=== PATIENT | female | born 1980 | race Caucasian/White ===

== ENCOUNTER → 2017-10-12 | Outpatient (REF) | payer BC | LOC: M LAB REF 10:43 | DX: J02.9 Acute pharyngitis, unspecified (principal) | CPT/HCPCS: 87077 ==

== ENCOUNTER → 2017-11-16 | Outpatient (REF) | payer BC ==
[2017-11-16 11:29] LABS: HEMATOCRIT 39.7 % (36.0-47.0); HEMOGLOBIN 13.4 g/dl (12.0-15.5); MEAN CORPUSCULAR HEMOGLOBIN 30.5 pg (27.0-33.0); MEAN CORPUSCULAR HGB CONC 33.8 g/dl (32.0-36.5); MEAN CORPUSCULAR VOLUME 90.2 fl (80.0-96.0); PLATELET COUNT, AUTOMATED 200 10^3/uL (150-450); RED CELL DISTRIBUTION WIDTH 11.9 % (11.5-14.5); WHITE BLOOD COUNT 5.8 10^3/uL (4.0-10.0)
[2017-11-16 12:30] LABS: ALBUMIN/GLOBULIN RATIO 1.29 (1.00-1.93); ALKALINE PHOSPHATASE 50 U/L (45-117); ALT/SGPT 21 U/L (12-78); ANION GAP 9 MEQ/L (8-16); AST/SGOT 14 U/L (7-37); BILIRUBIN,TOTAL 0.5 MG/DL (0.2-1.0); BLOOD UREA NITROGEN 14 MG/DL (7-18); CALCIUM LEVEL 8.7 MG/DL (8.5-10.1); CARBON DIOXIDE LEVEL 26 MEQ/L (21-32); CHLORIDE LEVEL 104 MEQ/L (98-107); CHOLESTEROL LEVEL 287 MG/DL (<200); CHOLESTEROL RISK RATIO 5.218 (<5); CREATININE FOR GFR 0.84 MG/DL (0.55-1.30); GLOMERULAR FILTRATION RATE > 60.0 (>60); GLUCOSE, FASTING 76 MG/DL (70-100); HDL CHOLESTEROL 55 MG/DL (>40); LDL CHOLESTEROL 191 MG/DL (<100); NON-HDL-C 232 MG/DL; POTASSIUM SERUM 4.3 MEQ/L (3.5-5.1); SODIUM LEVEL 139 MEQ/L (136-145); TOTAL PROTEIN 7.1 GM/DL (6.4-8.2); TRIGLYCERIDES LEVEL 207 MG/DL (<150)
[2017-11-16 12:44] LABS: TOTAL 25(OH) VITAMIN D 45.1 NG/ML (30.0-100.0)
== END ==
LOC: M SFHCCLAY 08:48
DX: R53.83 Other fatigue (principal); Z82.49 Family history of ischemic heart disease and other diseases of the circulatory system; Z13.220 Encounter for screening for lipoid disorders
CPT/HCPCS: 84443

== ENCOUNTER → 2018-02-20 | Outpatient (CLI) | payer BC ==
--- NOTE | 2018-02-20 15:22 | REP ---
Clinical: Acute bronchitis . Comparison: None . Technique: PA and lateral. Findings: The mediastinum and cardiac silhouette are normal. The lung galeas are clear and without acute consolidation, effusion, or pneumothorax. The skeletal structures are intact and normal. Impression: 1. No acute cardiopulmonary process. Electronically Signed by Charan Lima MD 02/20/2018 03:13 P
== END ==
LOC: M WUC 14:47
PROVIDERS: ATTEND Physician Assistant
DX: J20.9 Acute bronchitis, unspecified (principal)

== ENCOUNTER → 2018-05-27 | Outpatient (REF) | payer BC | LOC: M SFHCLERA 12:04 | PROVIDERS: ATTEND Physician Assistant | DX: Z20.818 Contact with and (suspected) exposure to other bacterial communicable diseases (principal) ==

== ENCOUNTER → 2018-08-23 | Outpatient (REF) | payer BC ==
[2018-08-23 18:18] LABS: ALT/SGPT 26 U/L (12-78); BILIRUBIN,TOTAL 0.3 MG/DL (0.2-1.0); BLOOD UREA NITROGEN 16 MG/DL (7-18); CALCIUM LEVEL 8.9 MG/DL (8.5-10.1); CARBON DIOXIDE LEVEL 29 MEQ/L (21-32); CHLORIDE LEVEL 104 MEQ/L (98-107); CREATININE FOR GFR 0.95 MG/DL (0.55-1.30); GLOMERULAR FILTRATION RATE > 60.0 (>60); GLUCOSE, FASTING 82 MG/DL (70-100); POTASSIUM SERUM 4.4 MEQ/L (3.5-5.1); SODIUM LEVEL 139 MEQ/L (136-145); TOTAL PROTEIN 7.2 GM/DL (6.4-8.2)
[2018-08-23 18:52] LABS: BASO % 0.6 % (0.0-1.0); EOS # 0.2 10^3/uL (0.0-0.50); EOS % 3.7 % (0.0-3.0); HEMATOCRIT 39.2 % (36.0-47.0); LYMPH % 31.7 % (24.0-44.0); MEAN CORPUSCULAR HEMOGLOBIN 30.6 pg (27.0-33.0); MEAN CORPUSCULAR HGB CONC 33.2 g/dl (32.0-36.5); MEAN CORPUSCULAR VOLUME 92.2 fl (80.0-96.0); MONO # 0.4 10^3/uL (0.0-0.8); MONO % 6.7 % (0.0-5.0); NEUTROPHILS # 3.7 10^3/uL (1.8-7.7); NEUTROPHILS % 57.1 % (36.0-66.0); PLATELET COUNT, AUTOMATED 213 10^3/uL (150-450); RED BLOOD COUNT 4.25 10^6/uL (4.00-5.40); WHITE BLOOD COUNT 6.4 10^3/uL (4.0-10.0)
== END ==
LOC: M LABNEURO 14:28
PROVIDERS: ATTEND Psychiatry & Neurology Neurology
DX: G40.89 Other seizures (principal)

== ENCOUNTER → 2018-11-16 | Outpatient (CLI) | payer BC ==
--- NOTE | 2018-11-16 16:46 | REP ---
PA and lateral chest: Comparison is 02/20/2018. The lung galeas are clear. The cardiac size is normal. The shon, mediastinum, and skeletal structures are unremarkable. Impression: Negative PA and lateral chest. There is no interval change. Electronically Signed by Pb Denton MD 11/16/2018 04:38 P
== END ==
LOC: M WUC 09:04
PROVIDERS: ATTEND Physician Assistant
DX: R06.02 Shortness of breath (principal)

== ENCOUNTER 2019-04-13 20:25 | Emergency (ER) | payer BC ==
[~2019-04-13] VITALS: Ht 165.1 cm; Wt 88.2 kg
[2019-04-13 20:31] VITALS: BP 140/97
[2019-04-13] MEDS ORDERED: FLUO40CA PO (20:36)
[2019-04-13] MEDS ORDERED: LEVE750T5 PO (20:36)
[2019-04-13] MEDS ORDERED: ARIP1TAB6 PO (20:36)
[2019-04-13] MEDS ORDERED: IBUPROFEN 800 MG TAB PO ONE (22:30)
[2019-04-13] MEDS ORDERED: TYLETAB14 PO (22:49)
--- NOTE | 2019-04-14 07:47 | REP ---
Clinical: Trauma. Fall. Technique: AP and lateral views of the right tibia / fibula. Findings: No acute fracture or dislocation. Skeletal structures, joint spaces, and surrounding soft tissues are normal. No subcutaneous emphysema or foreign body. Impression: No acute fracture or dislocation. Electronically Signed by Chaarn Lima MD 04/14/2019 07:39 A
--- NOTE | 2019-04-14 07:57 | REP ---
Clinical: Trauma. Technique: AP, lateral, bilateral oblique and sunrise views right knee . Findings: The osseous structures and joint spaces are intact and normal. There is no evidence for acute fracture or dislocation. No joint effusion is appreciated. Surrounding soft tissues are unremarkable. No subcutaneous emphysema or radiodense foreign body. Impression: Normal examination. No acute fracture or dislocation. Electronically Signed by Charan Lima MD 04/14/2019 07:49 A
== END 2019-04-13 23:04 | disposition home or self-care (01) ==
LOC: M ED 20:25
DX: M23.91 Unspecified internal derangement of right knee (principal); F32.9 Major depressive disorder, single episode, unspecified; Z79.899 Other long term (current) drug therapy; Z88.1 Allergy status to other antibiotic agents

== ENCOUNTER → 2019-07-17 | Outpatient (CLI) | payer BC ==
[~2019-07-17] MED LIST: ARIP1TAB6 PO; FLUO40CA PO; LEVE750T5 PO; MODA200T15 PO; PROBCAP14 PO; TYLETAB14 PO
== END ==
LOC: M LABSMTC 10:48
PROVIDERS: ATTEND Anesthesiology
DX: Z01.818 Encounter for other preprocedural examination (principal); Z11.59 Encounter for screening for other viral diseases
CPT/HCPCS: C9803; U0002

== ENCOUNTER 2019-07-19 06:14 | Day surgery (SDC) | payer BC ==
[~2019-07-19] VITALS: Ht 165.1 cm; Wt 96.6 kg
[~2019-07-19 06:14] MED LIST changes: +LR 1,000 ML IV ONE
[2019-07-19] MEDS ORDERED: ROCURONIUM BROMIDE 50 MG/5 ML VIAL As Ordered ONE (07:14)
[2019-07-19] MEDS ORDERED: LIDOCAINE 2% 100MG/5ML SDV (FOR ANES.) As Ordered ONE (07:14)
[2019-07-19] MEDS ORDERED: propofoL 200 MG/20 ML VIAL As Ordered ONE ×2 (07:14→07:43)
[2019-07-19] MEDS ORDERED: MIDAZOLAM INJ 2MG/2ML VIAL (J2250 PER 1MG) As Ordered ONE (07:14)
[2019-07-19] MEDS ORDERED: ceFAZolin SOD 2 GM in IV 1 EA IV ONE (07:15)
[2019-07-19] MEDS ORDERED: fentaNYL 100 MCG/2 ML INJECTION (J3010) As Ordered ONE (07:15)
[2019-07-19] MEDS ORDERED: ROPIvacaine 0.5% 30ML INJECTION (J2795 PER 1MG) As Ordered ONE (07:30)
[2019-07-19] MEDS ORDERED: dexameTHASONE 4 MG/ML 1ML VIAL (J1100 PER 1MG) As Ordered ONE (07:39)
[2019-07-19] MEDS ORDERED: ACETAMINOPHEN 1000MG 100ML IV BTL (OFIRMEV) (J0131 PER 10MG) As Ordered ONE (07:47)
[2019-07-19] MEDS ORDERED: KETOROLAC 60 MG/2 ML VIAL As Ordered ONE (07:53)
[2019-07-19] MEDS ORDERED: ONDANSETRON 4MG/2ML VIAL As Ordered ONE (07:53)
[2019-07-19] MEDS ORDERED: METOCLOPRAMIDE INJ 10MG/2ML VIAL (J2765 PER 1) As Ordered ONE (07:53)
[2019-07-19] MEDS ORDERED: HYDROmorphone HCL 2 MG/ML 1ML VIAL (J1170) As Ordered ONE (07:55)
[2019-07-19] MEDS ORDERED: hydrALAZINE 20MG/ML 1ML VIAL (J0360 PER 20MG) As Ordered ONE (08:40)
[2019-07-19] MEDS ORDERED: METOCLOPRAMIDE INJ 10MG/2ML VIAL (J2765 PER 1) IV PRN (09:30)
[2019-07-19] MEDS ORDERED: fentaNYL 100 MCG/2 ML INJECTION (J3010) IV PRN (09:30)
[2019-07-19] MEDS ORDERED: LR 1,000 ML IV SCH ×2 (09:30→09:45)
[2019-07-19] MEDS ORDERED: ONDANSETRON 4MG/2ML VIAL IV PRN (09:30)
[2019-07-19] MEDS ORDERED: PERCOCET 5MG/325MG TAB PO PRN (09:30)
[2019-07-19] MEDS ORDERED: MORPHINE 2 MG/ML 1ML VIAL (J2270) IV PRN (09:45)
[2019-07-19] MEDS ORDERED: ACETAMINOPHEN TAB 650MG DOSE (2X325MG) PO PRN (09:45)
[2019-07-19 12:25] VITALS: BP 113/61
--- NOTE | 2019-07-21 00:09 | RO ---
DATE OF PROCEDURE: 07/19/2019 PREOPERATIVE DIAGNOSIS: Right knee anterior cruciate ligament (ACL) tear. POSTOPERATIVE DIAGNOSIS: Right knee anterior cruciate ligament tear. PLANNED PROCEDURE: Right knee arthroscopy , hamstring autograft, anterior cruciate ligament reconstruction. PROCEDURE PERFORMED: Right knee arthroscopy, hamstring autograft, anterior cruciate ligament reconstruction. SURGEON: Stephen Dailey MD BANANA ROOM CUTTER: Amanda Thomas PA-C GENERAL UTILITY MAINTENANCE REPAIRER: Dr. Retana TYPE OF ANESTHETIC: General anesthetic. OPERATIVE PREAMBLE: The patient sustained an ACL tear and medial collateral ligament (MCL) sprain. She wished to go ahead with surgery. Explained the pros and cons, the risks and benefits of ACL reconstruction versus nonoperative management. I reiterated the risks in preoperative holding and marked the right lower extremity and proceeded to surgery. DESCRIPTION OF PROCEDURE: The patient was brought to the operating theatre. She was placed supine on the operating table. All bony processes were padded. 34-inch tourniquet was applied on the right thigh, appropriately padded. Stress positioner was used to right side. All bony prominences were padded. Sequential compression devices (SCDs) on the down leg. Two grams of IV Ancef was administered. General anesthesia was induced. Limb was prepped and draped in the usual sterile fashion, allowing over 3 minutes prep solution drying time. Preoperative time-out was performed to confirm to the site, the patient, and the surgery. Began by elevating the leg, making a 2-inch incision centered over the proximal and medial border of the tibia, carried the dissection down through skin and subcutaneous tissue, achieving meticulous hemostasis. I incised the sartorius fascia in line with the hamstring tendon insertions. I released any bands from the hamstrings. I used an open-ended tendon harvester to release the tendons proximally and then sharply excised them off bone. the tendons, changed them end to end. I cut them both off at 24 cm long. I whip stitched each end with #2 FiberWire for a length of 2.5 cm. Cleaned away any soft tissue and bands on the tendons. I attached one end to the TightRope RT button, passed the other through the loop of the ABS loop suture system, and then tripled the graft over and tied it over the ABS button loop system again. Tensioned the graft slightly. I then used locking loop-type configuration with buried knots at 1 and 2 cm from the tendon ends on both ends using #2 FiberWire again and burying the knots. Graft was sized; it sized to a 10 on both sides. Graft was placed on tension and surrounded by wet gauze. I next turned my attention back to the knee. I made standard high anterolateral and anteromedial portals. Performed full diagnostic arthroscopy. Cartilage was normal in patellofemoral as well as the lateral compartment. There was slight cartilage fraying, grade 1 to 2, on the medial femoral condyle, more towards the notch. I gently debrided this using a shaver. Meniscus were stable and solid on both sides, including the anterior and posterior horns and roots. No obvious tears. ACL had an obvious deficiency with positive empty lateral wall sign. The remaining stump was debrided. Lateral back wall was identified, as well as the ACL remnant stump between the tibial spines. Using inside-out FlipCutter retrograde drilling, I made the drill holes in the femur and the tibia. Femur was low and near the back wall without blowing it out. This measured 3 cm in length with a total tunnel length of 4 cm. The scope was driven up to confirm positive lateral cortex into the tunnel. Edges of the tunnels were cleaned up using a shaver. I then passed a #2 FiberWire using the FiberSticks through both tunnels, and through the anteromedial portal which I had placed a PassPort cannula. PassPort cannula was then removed and graft passed into the femoral and tibial tunnels. Graft was tensioned up into the femoral tunnel for a length of 3 cm. Total tunnel length in the tibia was 4 cm with a retrograde tunnel length of 3 cm as well. Total graft length was 7.5 cm, making 3 cm in each tunnel and 1.5 cm graft in the knee. Final arthroscopy pictures were taken and saved onto the system, and it was stable and solid to testing intraoperatively. No obvious impingement in full extension. The knee was cycled prior to graft tensioning and final tensioning was performed on both sides of the femur and the tibia. Backup sutures were then tied over the button as well on the tibial side. Passing sutures were removed and cut short on the femur and tibial side. Wounds were thoroughly irrigated, tourniquet taken down. Subcutaneous tissue was closed with interrupted #2-0 Vicryl sutures, and the skin with #3-0 Monocryl. 20 mL of 0.25% ropivacaine was used in and around the incision sites. Steri-Strips were applied, Adaptic, 4 x 8 gauze and ABD dressing was then used and overwrapped with a sterile 6-inch Jeremi bandage. The patient was woken up from the general anesthetic, transferred off the operating table and taken to the post-anesthesia care unit in stable condition. All sponge, needle, and instrument counts were orrect. Estimated blood loss: 50 mL. No complications. PLAN: The patient is to be discharged home according to day-surgery criteria. She will be weightbearing as tolerated using crutches for the first 2 weeks. Prescription will be called into her pharmacy of choice. Followup in the office in 2 weeks' time. The library circulation assistant, Amanda Thomas, was instrumental in completing the case, achieving visualization, and passing instruments. MELIDA
== END 2019-07-19 13:13 | disposition home or self-care (01) ==
LOC: M SDC 06:14
PROVIDERS: ATTEND Orthopaedic Surgery Sports Medicine
DX: S83.511A Sprain of anterior cruciate ligament of right knee, initial encounter (principal); S83.411A Sprain of medial collateral ligament of right knee, initial encounter; X58.XXXA Exposure to other specified factors, initial encounter; Y92.89 Other specified places as the place of occurrence of the external cause; E78.5 Hyperlipidemia, unspecified; R56.9 Unspecified convulsions; F41.9 Anxiety disorder, unspecified; F32.9 Major depressive disorder, single episode, unspecified; L30.9 Dermatitis, unspecified; G43.109 Migraine with aura, not intractable, without status migrainosus; Z87.891 Personal history of nicotine dependence; Z88.1 Allergy status to other antibiotic agents; Z79.899 Other long term (current) drug therapy
CPT/HCPCS: 29888; 81025; C1713; J0131; J0360; J0690; J1100; J1170; J1885; J2250; J2405; J2765; J2795; J3010

== ENCOUNTER → 2019-09-15 | Outpatient (CLI) | payer BC ==
[~2019-09-15] MED LIST changes: -LR 1,000 ML IV ONE
== END ==
LOC: M LABSMTC 13:07
PROVIDERS: ATTEND Anesthesiology
DX: Z01.818 Encounter for other preprocedural examination (principal); Z11.59 Encounter for screening for other viral diseases
CPT/HCPCS: C9803; U0003

== ENCOUNTER 2019-09-20 06:16 | Day surgery (SDC) | payer BC ==
[~2019-09-20] VITALS: Ht 167.6 cm; Wt 96.6 kg
[~2019-09-20 06:16] MED LIST changes: +LIDOCAINE 1% MDV 20ML VIAL SQ PRN; +LR 1,000 ML IV ONE; +ceFAZolin SOD 2 GM in IV 1 EA IV ONE
[2019-09-20] MEDS ORDERED: fentaNYL 100 MCG/2 ML INJECTION (J3010) As Ordered ONE ×2 (06:41→07:13)
[2019-09-20] MEDS ORDERED: MIDAZOLAM INJ 2MG/2ML VIAL (J2250 PER 1MG) As Ordered ONE ×2 (06:41→07:13)
[2019-09-20] MEDS ORDERED: BUPIVACAINE HCL 0.5% 30 ML VIAL As Ordered ONE (06:48)
[2019-09-20] MEDS ORDERED: ROPIvacaine 0.5% 30ML INJECTION (J2795 PER 1MG) As Ordered ONE (07:09)
[2019-09-20] MEDS ORDERED: ONDANSETRON 4MG/2ML VIAL As Ordered ONE (07:13)
[2019-09-20] MEDS ORDERED: LIDOCAINE 2% 100MG/5ML SDV (FOR ANES.) As Ordered ONE (07:13)
[2019-09-20] MEDS ORDERED: dexameTHASONE 4 MG/ML 1ML VIAL (J1100 PER 1MG) As Ordered ONE (07:45)
[2019-09-20] MEDS ORDERED: ACETAMINOPHEN 1000MG 100ML IV BTL (OFIRMEV) (J0131 PER 10MG) As Ordered ONE (08:01)
[2019-09-20] MEDS ORDERED: HYDROmorphone HCL 2 MG/ML 1ML VIAL (J1170) As Ordered ONE (08:22)
[2019-09-20] MEDS ORDERED: ePHEDrine SULFATE 25 MG/5 ML(5MG/ML) SYRINGE As Ordered ONE (08:41)
[2019-09-20] MEDS ORDERED: PHENYLephrine HCL 500 MCG/5 ML (100MCG/ML) SYRINGE (J2370) As Ordered ONE (08:41)
[2019-09-20] MEDS ORDERED: SEVOFLURANE INHAL SOLN 250 ML BTL As Ordered ONE (09:16)
[2019-09-20] MEDS ORDERED: oxyCODONE 5MG TAB PO PRN (10:30)
[2019-09-20] MEDS ORDERED: fentaNYL 100 MCG/2 ML INJECTION (J3010) IV PRN (10:30)
[2019-09-20] MEDS ORDERED: LEVALBUTEROL 1.25 MG/0.5 ML CONCENTRATE NEB As Ordered ONE (10:30)
[2019-09-20] MEDS ORDERED: LR 1,000 ML IV SCH ×2 (10:30→10:45)
[2019-09-20] MEDS ORDERED: ONDANSETRON 4MG/2ML VIAL IV PRN ×2 (10:30→10:45)
[2019-09-20] MEDS ORDERED: PERCOCET 5MG/325MG TAB PO PRN (10:45)
[2019-09-20] MEDS ORDERED: ACETAMINOPHEN TAB 650MG DOSE (2X325MG) PO PRN (10:45)
--- NOTE | 2019-09-20 11:22 | RO ---
DATE OF PROCEDURE: 09/20/2019 PREOPERATIVE DIAGNOSIS: Right knee anterior cruciate ligament (ACL) graft failure. POSTOPERATIVE DIAGNOSIS: Right knee anterior cruciate ligament graft failure. PLANNED PROCEDURE: Right knee anterior cruciate ligament revision. PROCEDURE PERFORMED: Right knee anterior cruciate ligament revision, plus allograft tissue. SURGEON: Dr. Dailey GROUND OPERATIONS CREW MEMBER: Dr. Su ALTERATIONS MANAGER: ROBERT Butler OPERATIVE PREAMBLE: This 39-year-old female underwent ACL hamstring allograft reconstruction. Within about a week she felt like the knee all of a sudden felt different and unstable. I saw her postoperative week #2. The knee was obviously unstable with graft failure. This is apparent on x-rays and MRI. We discussed the pros, cons, risks, and benefits of going ahead with a right knee ACL revision, reconstruction and possible need for allograft tissue. She understands. I reiterated the risks in preoperative holding, marked the right lower extremity and proceeded surgery. OPERATIVE REPORT: Patient was brought to operating theater. Administered general anesthetic. Placed supine on operating room table. Stress positioner was used to the patient's right leg. Tourniquet was applied and appropriately padded. All bony prominences were padded. Sequential compressive device (SCD) used on the opposite leg. Limb was prepped and draped in the usual sterile fashion allowing over 3 minutes prep solution drying time. Preoperative time-out was performed to confirm the site, the patient and surgery. I began by elevating the leg, inflating the tourniquet. Next, a superolateral incision to try to find the femoral buttone. This was quite difficult to find. I then turned my attention to the anteromedial tibial incision. I made this. I centered it proximally slightly. Found the buttone. I then inserted the scope into the knee through the anterolateral previously used portal as well as creating the anteromedial portal through the previously used site and then accessory anteromedial portal more medially-based in the knee. The graft appeared to be in the femoral tunnel and in the tibial tunnel, however, the graft appeared to be stretched out. Prior to the start of the case, I had performed Michael and pivot-shift testing. The graft appeared to be having a 2+ pivot-shift and 2+ Micheal and quite unstable. There was some suture in the graft leading me to believe that although the graft appeared to be mostly in the femoral tunnel there was fixation failure on the femoral side. I then turned my attention back to anteromedial tibial incision. I removed the button. I attempted to deliver the graft back through, however, the graft was macerated and stretched out. As such, I made the decision to remove the entire length of the graft with the shaving instruments. I completed the tibial tunnel. This appeared to be appropriate position; however, I fully completed the tibial tunnel of the anteromedial aspect of the tibial tunnel using a 9.5 mm series III FlipCutter instrument as that was what the allograft tissue diameter measured. I removed all graft and used a shaving instrument to freshen up the edges of the tunnel on both tibial and femoral side. Femoral tunnel measured approximately 3 cm with good lateral wall and tibial tunnel measured approximately 4 cm. The tunnels appeared to be in appropriate position and not dilated. I then turned my attention preparing the allograft Arthrex graft length tissue. This measured 7.5 cm in length and cm in diameter. I attempted to place the femoral tightrope in the usual fashion displacing a suture, however the suture pulling advice failed, and as such, I used the pre-sutured tails to attach this directly to a new femoral TightRope RT button. On the tibial side, the went through cleanly and easily for the ABS button loop suture system. I placed a PassPort cannula through the anteromedial portal. #2-0 FiberStick sutures were then used to the tibial and femoral side coming up the PassPort cannula. Femoral sutures were marked. The PassPort cannula was then removed ensuring no twisting of the passing sutures. The femoral side stitches were then passed through the femoral side button flipped and graft tensioned into the femoral socked for a length of approximately 2.5-3 cm. This docked appropriately. I then used a luggage tag stitch on the ABS button loop sutures, then passed this through the tibial tunnel. I cycled the knee 10 times to take up tension from the graft. I pulled with my fingers in a loop of the ABS button loop with the knee at 90 degrees as well 30 and tensioned the graft to see if the graft was too long for the tunnel, which I had overdrilled to ensure that there was no aspect of graft bottoming out and not achieving appropriate tension in the graft despite firm pulling on the graft was simply at the tunnel aperture and no further. As such, I attached the button and tightened down the internally tightening sutures. The button I used was from the previous surgery. This achieved good tension. I decided to back this up due to previous failure with a SwiveLock anchor on the anteromedial tibial just distal to the fixation point. I tapped and inserted the anchor and cut the sutures short. Michael was stable and solid and range of motion was full. No impingement in extension. Final arthroscopy pictures taken to with system. Medial and lateral compartments of the knee were entered and no obvious meniscus tear and patellofemoral joint appeared normal. Scope was withdrawn. The wounds irrigated using normal saline. Subcutaneous tissues closed with interrupted #2-0 Vicryl sutures and the skin with #3-0 Monocryl. The skin was cleaned with wet-to-dry dressing followed by application of Steri-Strips, Adaptic, 4 x 8 gauze, and ABD dressing overwrapped with sterile 6 inch bandage. The patient was awoken up from general anesthetic, transferred off the operating table and taken too postanesthesia care unit in stable addition. All sponge, needle, instrument counts were correct. No complications. Estimated blood loss 50 mL. Plan for the patient is to be discharged home according to day surgery criteria. They can be weightbearing as tolerated on crutches for the first 2 weeks. I will slow down the rehab considering they had an early graft failure to begin with. They change dressing post-op day #2. Prescription was called into the pharmacy of choice electronically. The itinerant teacher assistant, Terrell Guillen, was instrumental in achieving visualization, passing instruments, holding the arthroscope and completing this case.
--- NOTE | 2019-09-20 12:25 | REP ---
Portable chest x-ray: Single view. History: Decreased pulse ox. Comparison chest x-ray November 16, 2018. Findings: Monitoring electrodes overlie the chest. Lungs are symmetrically aerated and clear. Heart is not enlarged. Pulmonary vasculature is not increased. No significant bony abnormality is seen. Impression: No acute disease. Electronically Signed by Uche Pleitez MD 09/20/2019 12:16 P
[2019-09-20 14:00] VITALS: BP 107/61
== END 2019-09-20 15:08 | disposition home or self-care (01) ==
LOC: M SDC 06:16
PROVIDERS: ATTEND Orthopaedic Surgery Sports Medicine
DX: S83.511A Sprain of anterior cruciate ligament of right knee, initial encounter (principal); X58.XXXA Exposure to other specified factors, initial encounter; Y92.89 Other specified places as the place of occurrence of the external cause; Y93.9 Activity, unspecified; Y99.9 Unspecified external cause status; G43.909 Migraine, unspecified, not intractable, without status migrainosus; G40.909 Epilepsy, unspecified, not intractable, without status epilepticus; E78.5 Hyperlipidemia, unspecified; F41.9 Anxiety disorder, unspecified; F32.9 Major depressive disorder, single episode, unspecified; Z79.899 Other long term (current) drug therapy; Z88.1 Allergy status to other antibiotic agents; Z87.891 Personal history of nicotine dependence
CPT/HCPCS: 27427; 71045; 81025; C1713; C1762; J0131; J0690; J1100; J1170; J2250; J2370; J2405; J2795; J3010

== ENCOUNTER → 2019-10-12 | Outpatient (REF) | payer BC ==
[~2019-10-12] MED LIST changes: -LIDOCAINE 1% MDV 20ML VIAL SQ PRN; -LR 1,000 ML IV ONE; -ceFAZolin SOD 2 GM in IV 1 EA IV ONE
[2019-11-19 10:35] LABS: CHLAMYDIA DNA AMPLIFICATION NEGATIVE (NEGATIVE); GC DNA AMPLIFICATION NEGATIVE (NEGATIVE)
[2019-11-29 09:13] LABS: HEPATITIS C VIRUS ABY INDEX 0.1 INDEX (<0.8); HIV 1&2 SCREEN CENTAUR NEGATIVE (NEGATIVE)
== END ==
LOC: M SFHCWAGY 12:28
PROVIDERS: ATTEND Advanced Practice Midwife
DX: Z12.4 Encounter for screening for malignant neoplasm of cervix (principal)

== ENCOUNTER → 2020-01-30 | Outpatient (CLI) | payer BC ==
[2020-01-30 17:50] LABS: BASO # 0.1 10^3/uL (0.0-0.2); BASO % 0.6 % (0.0-1.0); EOS # 0.3 10^3/uL (0.0-0.5); EOS % 3.2 % (0.0-3.0); HEMATOCRIT 38.6 % (36.0-47.0); HEMOGLOBIN 12.5 g/dl (12.0-15.5); LYMPH # 2.3 10^3/uL (1.5-5.0); LYMPH % 27.8 % (24.0-44.0); MEAN CORPUSCULAR HEMOGLOBIN 29.9 pg (27.0-33.0); MEAN CORPUSCULAR HGB CONC 32.4 g/dl (32.0-36.5); MEAN CORPUSCULAR VOLUME 92.3 fl (80.0-96.0); MONO # 0.5 10^3/uL (0.0-0.8); MONO % 6.6 % (0.0-5.0); NEUTROPHILS % 61.2 % (36.0-66.0); PLATELET COUNT, AUTOMATED 212 10^3/uL (150-450); RED BLOOD COUNT 4.18 10^6/uL (4.00-5.40); WHITE BLOOD COUNT 8.2 10^3/uL (4.0-10.0)
[2020-01-30 18:28] LABS: ALBUMIN 3.7 GM/DL (3.2-5.2); ALT/SGPT 29 U/L (12-78); BILIRUBIN,TOTAL 0.2 MG/DL (0.2-1.0); BLOOD UREA NITROGEN 12 MG/DL (7-18); CALCIUM LEVEL 9.5 MG/DL (8.5-10.1); CARBON DIOXIDE LEVEL 27 MEQ/L (21-32); CHLORIDE LEVEL 105 MEQ/L (98-107); CREATININE FOR GFR 0.85 MG/DL (0.55-1.30); GLOMERULAR FILTRATION RATE > 60.0 (>60); GLUCOSE, FASTING 92 MG/DL (70-100); POTASSIUM SERUM 4.3 MEQ/L (3.5-5.1); SODIUM LEVEL 138 MEQ/L (136-145)
== END ==
LOC: M PLALAB 15:03
PROVIDERS: ATTEND Psychiatry & Neurology Neurology
DX: G40.89 Other seizures (principal)

== ENCOUNTER → 2020-02-18 | Outpatient (REF) | payer BC | LOC: M LAB REF 15:01 | PROVIDERS: ATTEND Nurse Practitioner Family | DX: J02.9 Acute pharyngitis, unspecified (principal) ==

== ENCOUNTER → 2020-09-25 | Outpatient (CLI) | payer BC ==
--- NOTE | 2020-09-25 10:20 | REP ---
INDICATION: PAIN COMPARISON: 04/13/2019 a pre operative exam TECHNIQUE: Five views FINDINGS: Patient is status post ACL reconstruction. Mature tunnel defects are seen 1 of the proximal femur laterally and the other in the proximal tibia medially and secondary to previous reconstruction of the ACL. There are 3 metallic densities present 2 proximally 1 distally consistent with anchor devices. There is minimal bicompartmental marginal osteophyte formation and very mild medial compartmental narrowing. There is no acute fracture, dislocation, or subluxation. There are no prior postoperative examinations for comparison. IMPRESSION: Postoperative changes and mild chronic changes as described above. There is no evidence of an acute abnormality. <Electronically signed by Isacc Brenner > 09/25/20 [id number]
== END ==
LOC: M WUC 09:52
PROVIDERS: ATTEND Nurse Practitioner Family
DX: M25.561 Pain in right knee (principal)

== ENCOUNTER → 2020-10-10 | Outpatient (CLI) | payer BC ==
--- NOTE | 2020-10-10 15:34 | REP ---
INDICATION: RIGHT FOOT AND ANKLE PAIN. COMPARISON: None. TECHNIQUE: Four views FINDINGS: No foot fracture, dislocation or bone texture and mallet EPB and alignment normal. Joint spaces well preserved. Soft tissues unremarkable. IMPRESSION: Normal radiographs right foot <Electronically signed by Ty Perez > 10/10/20 [id number]
== END ==
LOC: M SOG 15:11
PROVIDERS: ATTEND Orthopaedic Surgery Sports Medicine
DX: M25.571 Pain in right ankle and joints of right foot (principal)

== ENCOUNTER → 2020-11-19 | Outpatient (CLI) | payer BC | LOC: M PLALAB 15:39 | PROVIDERS: ATTEND Specialist | DX: N92.6 Irregular menstruation, unspecified (principal) ==

== ENCOUNTER → 2020-11-21 | Outpatient (CLI) | payer BC | LOC: M PLALAB 14:41 | PROVIDERS: ATTEND Advanced Practice Midwife | DX: N91.2 Amenorrhea, unspecified (principal) ==

== ENCOUNTER → 2020-12-14 | Outpatient (CLI) | payer BC | LOC: M LAB 11:17 | PROVIDERS: ATTEND Advanced Practice Midwife | DX: N91.2 Amenorrhea, unspecified (principal) ==

== ENCOUNTER → 2020-12-16 | Outpatient (CLI) | payer BC | LOC: M PLALAB 13:38 | PROVIDERS: ATTEND Specialist | DX: N92.6 Irregular menstruation, unspecified (principal) ==

== ENCOUNTER → 2020-12-18 | Outpatient (CLI) | payer BC | LOC: M PLALAB 11:54 | PROVIDERS: ATTEND Advanced Practice Midwife | DX: N91.2 Amenorrhea, unspecified (principal) ==

== ENCOUNTER → 2021-01-16 | Outpatient (CLI) | payer BC | LOC: M PLALAB 15:01 | PROVIDERS: ATTEND Advanced Practice Midwife | DX: N91.2 Amenorrhea, unspecified (principal) ==

== ENCOUNTER → 2021-01-19 | Outpatient (CLI) | payer BC | LOC: M LAB 12:51 | PROVIDERS: ATTEND Advanced Practice Midwife | DX: N91.2 Amenorrhea, unspecified (principal) ==

== ENCOUNTER → 2021-01-21 | Outpatient (CLI) | payer BC ==
--- NOTE | 2021-01-21 13:23 | REP ---
INDICATION: W INCONCLUSIVE VIABILITY, UNSP COMPARISON: None. TECHNIQUE: Transabdominal 1st trimester obstetrical ultrasound with color Doppler evaluation. FINDINGS: Single live early intrauterine is appreciated. Gestational sac with yolk sac and pole identified. Bootjack-rump length of 22 mm corresponds to 8 weeks 6 days gestational age with estimated date of delivery 08/27/2021. heart rate equals 170 beats per minute. No gross abnormalities are identified. A small subchorionic hemorrhage along the left side of the gestational sac measures 23 x 9 x 9 mm. Left uterine fibroid measures 5.5 x 3.8 x 5.2 cm. 2.0 x 1.7 x 1.9 cm corpus luteal cyst noted. IMPRESSION: Single live early intrauterine at 8 weeks 6 days gestational age.Complete anatomical assessment should be performed and 19-20 weeks. Small subchorionic hemorrhage. <Electronically signed by Charan Lima > 01/21/21 [id number]
== END ==
LOC: M WHC 11:57
PROVIDERS: ATTEND Advanced Practice Midwife
DX: O36.80X0 Pregnancy with inconclusive fetal viability, not applicable or unspecified (principal)

== ENCOUNTER → 2021-02-13 | Outpatient (REF) | payer BC | LOC: M SFHCWAGY 17:35 | PROVIDERS: ATTEND Advanced Practice Midwife | DX: Z36.89 Encounter for other specified antenatal screening (principal); Z3A.12 12 weeks gestation of pregnancy ==

== ENCOUNTER → 2021-04-07 | Outpatient (CLI) | payer BC, SELFPAY ==
[2021-04-07 13:20] LABS: BASO % 0.3 % (0.0-1.0); EOS # 0.1 10^3/uL (0.0-0.5); EOS % 0.9 % (0.0-3.0); HEMATOCRIT 37.3 % (36.0-47.0); HEMOGLOBIN 12.3 g/dl (12.0-15.5); LYMPH # 1.7 10^3/uL (1.5-5.0); LYMPH % 15.7 % (24.0-44.0); MEAN CORPUSCULAR HEMOGLOBIN 29.4 pg (27.0-33.0); MEAN CORPUSCULAR VOLUME 89.2 fl (80.0-96.0); MONO # 0.4 10^3/uL (0.0-0.8); MONO % 4.1 % (2.0-8.0); NEUTROPHILS # 8.5 10^3/uL (1.5-8.5); NEUTROPHILS % 78.4 % (36.0-66.0); PLATELET COUNT, AUTOMATED 172 10^3/uL (150-450); RED BLOOD COUNT 4.18 10^6/uL (4.00-5.40); WHITE BLOOD COUNT 10.9 10^3/uL (4.0-10.0)
[2021-04-07 13:35] LABS: TOTAL PROTEIN,RANDOM URINE 17.6 MG/DL (0.0-12.0)
[2021-04-07 13:54] LABS: ALT/SGPT 26 U/L (12-78); BILIRUBIN,TOTAL 0.3 MG/DL (0.2-1.0); CREATININE FOR GFR 0.66 MG/DL (0.55-1.30); GLOMERULAR FILTRATION RATE > 60.0 (>60); LDH LACTATE DEHYDROGENASE 145 U/L (84-246); URIC ACID 3.5 MG/DL (2.6-6.0)
[2021-04-07 14:36] LABS: GC DNA AMPLIFICATION NEGATIVE (NEGATIVE)
[2021-04-07 15:52] LABS: HEPATITIS C VIRUS ABY INDEX < 0.0 INDEX (<0.8); HIV 1&2 SCREEN CENTAUR NEGATIVE (NEGATIVE)
== END ==
LOC: M PLALAB 10:11
PROVIDERS: ATTEND Advanced Practice Midwife
DX: O26.891 Other specified pregnancy related conditions, first trimester (principal); Z3A.12 12 weeks gestation of pregnancy

== ENCOUNTER → 2021-04-14 | Outpatient (CLI) | payer BC | LOC: M WHC 08:42 | PROVIDERS: ATTEND Advanced Practice Midwife | DX: O09.529 Supervision of elderly multigravida, unspecified trimester (principal) ==

== ENCOUNTER → 2021-05-21 | Outpatient (CLI) | payer BC, OTHER, SELFPAY | LOC: M WHC 10:40 | PROVIDERS: ATTEND Advanced Practice Midwife | DX: O09.529 Supervision of elderly multigravida, unspecified trimester (principal) ==

== ENCOUNTER 2021-06-20 11:38 | Outpatient (CLI) | payer OTHER ==
[~2021-06-20] VITALS: Ht 165.1 cm; Wt 102.5 kg
[2021-06-20] MEDS ORDERED: PROZ20CA11 PO (12:07)
[2021-06-20] MEDS ORDERED: TUMS500C PO (12:07)
[2021-06-20] MEDS ORDERED: ECOT81TA5 PO (12:07)
[2021-06-20] MEDS ORDERED: PRENTAB9 PO (12:07)
[2021-06-20] MEDS ORDERED: HOME MED LIST COMPLETE! XX SCH (12:10)
[2021-06-20 12:15] VITALS: BP 139/97
[2021-06-20 12:28] VITALS: BP 138/91
[2021-06-20 12:44] VITALS: BP 133/80
[2021-06-20 12:49] VITALS: BP 137/87
[2021-06-20 13:16] LABS: HEMATOCRIT 36.3 % (36.0-47.0); HEMOGLOBIN 12.2 g/dl (12.0-15.5); MEAN CORPUSCULAR HGB CONC 33.6 g/dl (32.0-36.5); MEAN CORPUSCULAR VOLUME 89.2 fl (80.0-96.0); PLATELET COUNT, AUTOMATED 194 10^3/uL (150-450); RED BLOOD COUNT 4.07 10^6/uL (4.00-5.40); WHITE BLOOD COUNT 13.6 10^3/uL (4.0-10.0)
[2021-06-20 13:24] VITALS: BP 140/90
[2021-06-20 13:31] LABS: TOTAL PROTEIN,RANDOM URINE 30.8 MG/DL (0.0-12.0)
[2021-06-20 13:45] LABS: ALT/SGPT 26 U/L (12-78); BILIRUBIN,TOTAL 0.4 MG/DL (0.2-1.0); CREATININE FOR GFR 0.66 MG/DL (0.55-1.30); GLOMERULAR FILTRATION RATE > 60.0 (>60); LDH LACTATE DEHYDROGENASE 240 U/L (84-246); URIC ACID 3.8 MG/DL (2.6-6.0)
[2021-06-20 14:12] VITALS: BP 143/84
== END 2021-06-20 15:05 | disposition home or self-care (01) ==
LOC: M LDO 11:38
PROVIDERS: ATTEND Specialist
DX: O14.93 Unspecified pre-eclampsia, third trimester (principal); O26.893 Other specified pregnancy related conditions, third trimester; R51.9 Headache, unspecified; Z3A.30 30 weeks gestation of pregnancy
CPT/HCPCS: 36415; 59025; 82247; 82565; 82570; 83615; 84156; 84450; 84460; 84550; 85027; G0378; G0463

== ENCOUNTER 2021-06-24 10:44 | Outpatient (CLI) | payer OTHER ==
[2021-06-24] VITALS (28 sets, daily range): BP systolic 67–165; BP diastolic 34–100
[~2021-06-24] VITALS: Ht 165.1 cm; Wt 102.3 kg
[~2021-06-24 10:44] MED LIST changes: +ECOT81TA5 PO; +LABETALOL 200 MG TAB PO SCH; +PRENTAB9 PO; +PROZ20CA11 PO; +TUMS500C PO
[2021-06-24] MEDS ORDERED: HOME MED LIST COMPLETE! XX SCH (11:35)
[2021-06-24 12:29] LABS: TOTAL PROTEIN,RANDOM URINE 25.9 MG/DL (0.0-12.0)
[2021-06-24 12:44] LABS: HEMATOCRIT 35.2 % (36.0-47.0); HEMOGLOBIN 11.6 g/dl (12.0-15.5); MEAN CORPUSCULAR HEMOGLOBIN 29.7 pg (27.0-33.0); MEAN CORPUSCULAR VOLUME 90.3 fl (80.0-96.0); PLATELET COUNT, AUTOMATED 180 10^3/uL (150-450)
[2021-06-24] MEDS: BETAMETHASONE SOLUSPAN 6MG/ML 5ML VIAL (J0702 PER 3MG) IM SCH (12:55)
[2021-06-24 13:08] LABS: BLOOD UREA NITROGEN 11 MG/DL (7-18); CARBON DIOXIDE LEVEL 24 MEQ/L (21-32); CHLORIDE LEVEL 103 MEQ/L (98-107); CREATININE FOR GFR 0.76 MG/DL (0.55-1.30); GLOMERULAR FILTRATION RATE > 60.0 (>60); GLUCOSE, FASTING 134 MG/DL (70-100); SODIUM LEVEL 134 MEQ/L (136-145)
[2021-06-24 13:09] LABS: ALBUMIN 2.8 GM/DL (3.2-5.2); ALT/SGPT 24 U/L (12-78); BILIRUBIN,TOTAL 0.3 MG/DL (0.2-1.0); CALCIUM LEVEL 8.7 MG/DL (8.5-10.1); TOTAL PROTEIN 6.2 GM/DL (6.4-8.2)
[2021-06-24] MEDS ORDERED: LACTATED RINGER'S 1000 ML IV STA (14:28)
[2021-06-24] MEDS: CALCIUM CARBONATE 500 MG CHEW U/D PO PRN ×2 (16:10→22:08)
[2021-06-24] MEDS: ACETAMINOPHEN 500 MG TAB PO PRN ×2 (16:10→22:08)
[2021-06-24] MEDS ORDERED: LR 1,000 ML IV SCH (16:35)
[2021-06-25] VITALS (10 sets, daily range): BP systolic 97–126; BP diastolic 51–86
[2021-06-25] MEDS: CALCIUM CARBONATE 500 MG CHEW U/D PO PRN (03:19)
[2021-06-25] MEDS: ACETAMINOPHEN 500 MG TAB PO PRN (09:25)
[2021-06-25] MEDS: BETAMETHASONE SOLUSPAN 6MG/ML 5ML VIAL (J0702 PER 3MG) IM SCH (13:00)
== END 2021-06-25 13:55 | disposition home or self-care (01) ==
LOC: M LDO 10:44
PROVIDERS: ATTEND Obstetrics & Gynecology
DX: O13.3 Gestational [pregnancy-induced] hypertension without significant proteinuria, third trimester (principal); O99.343 Other mental disorders complicating pregnancy, third trimester; F32.A Depression, unspecified; O09.513 Supervision of elderly primigravida, third trimester; O34.13 Maternal care for benign tumor of corpus uteri, third trimester; Z3A.30 30 weeks gestation of pregnancy
CPT/HCPCS: 36415; 59025; 76816; 76820; 80053; 82570; 82950; 84156; 85027; 96372; G0378; G0463; J0702

== ENCOUNTER → 2021-06-30 | Outpatient (CLI) | payer OTHER ==
[~2021-06-30] MED LIST changes: -LABETALOL 200 MG TAB PO SCH
[2021-06-30 13:50] LABS: HEMATOCRIT 38.1 % (36.0-47.0); HEMOGLOBIN 12.6 g/dl (12.0-15.5); MEAN CORPUSCULAR HEMOGLOBIN 29.5 pg (27.0-33.0); MEAN CORPUSCULAR HGB CONC 33.1 g/dl (32.0-36.5); MEAN CORPUSCULAR VOLUME 89.2 fl (80.0-96.0); PLATELET COUNT, AUTOMATED 218 10^3/uL (150-450); RED BLOOD COUNT 4.27 10^6/uL (4.00-5.40); WHITE BLOOD COUNT 15.9 10^3/uL (4.0-10.0)
[2021-06-30 14:09] LABS: CREATININE,RANDOM URINE 94.9 MG/DL; TOTAL PROTEIN,RANDOM URINE 31.7 MG/DL (0.0-12.0)
[2021-06-30 14:13] LABS: ALBUMIN 3.1 GM/DL (3.2-5.2); ALT/SGPT 24 U/L (12-78); BILIRUBIN,TOTAL 0.3 MG/DL (0.2-1.0); BLOOD UREA NITROGEN 14 MG/DL (7-18); CALCIUM LEVEL 9.8 MG/DL (8.5-10.1); CARBON DIOXIDE LEVEL 23 MEQ/L (21-32); CHLORIDE LEVEL 105 MEQ/L (98-107); CREATININE FOR GFR 0.61 MG/DL (0.55-1.30); GLOMERULAR FILTRATION RATE > 60.0 (>60); GLUCOSE, FASTING 77 MG/DL (70-100); POTASSIUM SERUM 4.3 MEQ/L (3.5-5.1); SODIUM LEVEL 137 MEQ/L (136-145); TOTAL PROTEIN 6.8 GM/DL (6.4-8.2)
== END ==
LOC: M PLALAB 12:01
PROVIDERS: ATTEND Obstetrics & Gynecology
DX: O99.840 Bariatric surgery status complicating pregnancy, unspecified trimester (principal)

== ENCOUNTER → 2021-07-07 | Outpatient (CLI) | payer OTHER | LOC: M WHC 15:01 | PROVIDERS: ATTEND Obstetrics & Gynecology | DX: O13.3 Gestational [pregnancy-induced] hypertension without significant proteinuria, third trimester (principal) ==

== ENCOUNTER → 2021-07-10 | Outpatient (CLI) | payer OTHER | LOC: M LAB 08:26 | PROVIDERS: ATTEND Obstetrics & Gynecology | DX: O99.810 Abnormal glucose complicating pregnancy (principal); O13.9 Gestational [pregnancy-induced] hypertension without significant proteinuria, unspecified trimester; Z3A.00 Weeks of gestation of pregnancy not specified ==

== ENCOUNTER 2021-07-18 10:59 | Outpatient (CLI) | payer OTHER ==
[~2021-07-18] VITALS: Ht 165.1 cm; Wt 102.0 kg
[2021-07-18] MEDS ORDERED: FIORICET TAB PO ONE (12:20)
[2021-07-18] MEDS ORDERED: HOME MED LIST COMPLETE! XX SCH (15:40)
== END 2021-07-18 15:10 | disposition home or self-care (01) ==
LOC: M LDO 10:59
PROVIDERS: ATTEND Advanced Practice Midwife
DX: O14.93 Unspecified pre-eclampsia, third trimester (principal); O24.419 Gestational diabetes mellitus in pregnancy, unspecified control; O34.13 Maternal care for benign tumor of corpus uteri, third trimester; O09.513 Supervision of elderly primigravida, third trimester; O99.343 Other mental disorders complicating pregnancy, third trimester; F32.A Depression, unspecified; Z3A.34 34 weeks gestation of pregnancy
CPT/HCPCS: 59025; 76815; 76819; 76820; 87081; G0463

== ENCOUNTER 2021-07-23 13:32 | Inpatient (IN) | payer OTHER ==
[~2021-07-23] VITALS: Ht 165.1 cm; Wt 102.4 kg
[2021-07-23] VITALS (33 sets, daily range): BP systolic 133–194; BP diastolic 58–114
[2021-07-23] MEDS ORDERED: FIOR1CAP PO (14:01)
[2021-07-23] MEDS ORDERED: HOME MED LIST COMPLETE! XX SCH (14:05)
[2021-07-23 15:41] LABS: HEMATOCRIT 34.3 % (36.0-47.0); HEMOGLOBIN 11.7 g/dl (12.0-15.5); MEAN CORPUSCULAR HEMOGLOBIN 29.5 pg (27.0-33.0); MEAN CORPUSCULAR HGB CONC 34.1 g/dl (32.0-36.5); MEAN CORPUSCULAR VOLUME 86.4 fl (80.0-96.0); PLATELET COUNT, AUTOMATED 200 10^3/uL (150-450); RED BLOOD COUNT 3.97 10^6/uL (4.00-5.40); WHITE BLOOD COUNT 10.1 10^3/uL (4.0-10.0)
[2021-07-23 16:06] LABS: ALT/SGPT 19 U/L (12-78); BILIRUBIN,TOTAL 0.3 MG/DL (0.2-1.0); CREATININE FOR GFR 0.66 MG/DL (0.55-1.30); GLOMERULAR FILTRATION RATE > 60.0 (>60); LDH LACTATE DEHYDROGENASE 206 U/L (84-246); URIC ACID 3.8 MG/DL (2.6-6.0)
[2021-07-23] MEDS ORDERED: FIORICET TAB PO ONE (16:15)
[2021-07-23 16:18] LABS: CREATININE,RANDOM URINE 77.5 MG/DL; TOTAL PROTEIN,RANDOM URINE 29.5 MG/DL (0.0-12.0)
[2021-07-23] MEDS ORDERED: CALCIUM GLUCONATE 1,000 MG in D5W MINI-BAG PLUS 100 ML IV PRN (17:15)
[2021-07-23] MEDS ORDERED: LIDOCAINE 1% MDV 20ML VIAL INFIL PRN (17:15)
[2021-07-23] MEDS ORDERED: MAG Sulf (L&D) 4 GM/100 ML 4 GM in IV 1 EA IV ONE (17:15)
[2021-07-23] MEDS ORDERED: TRANEXAMIC ACID INJection 1,000 MG in NS 100 ML IV PRN (17:15)
[2021-07-23] MEDS ORDERED: CARBOPROST TROMETHAMINE 250 MCG/ML AMP IM PRN (17:15)
[2021-07-23] MEDS ORDERED: miSOPROStol 50MCG 1/2 TABLET PO ONE (17:15)
[2021-07-23] MEDS ORDERED: OXYTOCIN DRIP 30 UNITS in IV 1 EA IV PRN ×4 (17:15)
[2021-07-23] MEDS ORDERED: BETAMETHASONE SOLUSPAN 6MG/ML 5ML VIAL (J0702 PER 3MG) IM ONE (17:15)
[2021-07-23] MEDS ORDERED: OXYTOCIN INJ 10 UNITS/ML VIAL (J2590) IM PRN (17:15)
[2021-07-23] MEDS: LR 1,000 ML IV SCH (17:58)
[2021-07-23] MEDS ORDERED: hydrALAZINE 20MG/ML 1ML VIAL (J0360 PER 20MG) IV ONE ×2 (18:15→19:05)
[2021-07-23] MEDS: MAG Sulf (OBGYN) 20GM/500ML 20,000 MG in IV 1 EA IV SCH (18:25)
[2021-07-23] MEDS ORDERED: hydrALAZINE 20MG/ML 1ML VIAL (J0360 PER 20MG) IV STA (18:40)
[2021-07-23] MEDS ORDERED: OXYTOCIN DRIP 30 UNITS in IV 1 EA IV SCH (21:35)
[2021-07-23 23:13] LABS: HEMATOCRIT 34.1 % (36.0-47.0); HEMOGLOBIN 11.6 g/dl (12.0-15.5); MEAN CORPUSCULAR HEMOGLOBIN 29.7 pg (27.0-33.0); MEAN CORPUSCULAR VOLUME 87.2 fl (80.0-96.0); PLATELET COUNT, AUTOMATED 190 10^3/uL (150-450); RED BLOOD COUNT 3.91 10^6/uL (4.00-5.40); WHITE BLOOD COUNT 13.6 10^3/uL (4.0-10.0)
[2021-07-24] VITALS (31 sets, daily range): BP systolic 98–183; BP diastolic 42–106
[2021-07-24] MEDS ORDERED: NALOXONE INJ 0.4MG/1ML VIAL (J2310 PER 1MG) IV PRN ×3 (03:10→04:38)
[2021-07-24] MEDS ORDERED: EPIDURAL/PCA KEYS XX PRN (03:10)
[2021-07-24] MEDS ORDERED: FENTANYL/ROPIVACAINE/NACL BAG 100 ML EPIDURAL SCH (03:10)
[2021-07-24] MEDS ORDERED: REFRIGERATOR IV KEYS XX PRN (03:10)
[2021-07-24] MEDS ORDERED: LACTATED RINGER'S 1000 ML IV PRN (03:10)
[2021-07-24] MEDS ORDERED: ePHEDrine SULFATE 25 MG/5 ML(5MG/ML) SYRINGE IV PRN (03:10)
[2021-07-24] MEDS ORDERED: ONDANSETRON 4MG/2ML VIAL IV PRN ×3 (03:10→05:30)
[2021-07-24] MEDS ORDERED: diphenhydrAMINE 50MG/ML VIAL (J1200) IV PRN ×2 (03:10→04:38)
[2021-07-24] MEDS ORDERED: EPIDURAL COMMENT XX SCH (03:10)
[2021-07-24] MEDS ORDERED: FENTANYL 2MCG/ML ROPIVACAINE 0.2% IN 0.9% NACL 100ML IVBAG As Ordered ONE (03:12)
[2021-07-24] MEDS ORDERED: fentaNYL 100 MCG/2 ML INJECTION As Ordered ONE (04:08)
[2021-07-24] MEDS ORDERED: LIDOCAINE 2% 100MG/5ML SDV (FOR ANES.) As Ordered ONE (04:12)
[2021-07-24] MEDS ORDERED: ROCURONIUM BROMIDE 50 MG/5 ML VIAL As Ordered ONE (04:12)
[2021-07-24] MEDS ORDERED: propofoL 200 MG/20 ML VIAL As Ordered ONE (04:12)
[2021-07-24] MEDS ORDERED: BICITRA 30ML SOLN UDC As Ordered ONE (04:13)
[2021-07-24] MEDS ORDERED: ceFAZolin 2 GM/D5W 50 ML IV BAG (J0690 PER 500MG) As Ordered ONE (04:13)
[2021-07-24] MEDS ORDERED: BICITRA 30ML SOLN UDC PO ONE (04:15)
[2021-07-24] MEDS ORDERED: ceFAZolin SOD 2 GM in IV 1 EA IV ONE (04:15)
[2021-07-24] MEDS ORDERED: MORPHINE PRES-FREE INJ 10 MG/10 ML VIAL As Ordered ONE (04:26)
[2021-07-24] MEDS ORDERED: METOCLOPRAMIDE INJ 10MG/2ML VIAL (J2765 PER 1) IV PRN (04:38)
[2021-07-24] MEDS ORDERED: OXYTOCIN INJ 10 UNITS/ML VIAL (J2590) As Ordered ONE ×3 (04:39→05:39)
[2021-07-24] MEDS ORDERED: ePHEDrine SULFATE 25 MG/5 ML(5MG/ML) SYRINGE As Ordered ONE ×2 (04:53→05:13)
[2021-07-24] MEDS ORDERED: PHENYLephrine 500MCG 5ML (100MCG/ML) SYRINGE As Ordered ONE ×2 (04:53→05:13)
[2021-07-24] MEDS ORDERED: ONDANSETRON 4MG/2ML VIAL As Ordered ONE (04:54)
[2021-07-24] MEDS ORDERED: dexameTHASONE 4 MG/ML 1ML VIAL (J1100 PER 1MG) As Ordered ONE (04:55)
[2021-07-24] MEDS ORDERED: oxyCODONE 5MG TAB PO PRN ×2 (05:30→05:45)
[2021-07-24] MEDS ORDERED: KETOROLAC 30 MG/ML 1ML VIAL IV PRN (05:30)
[2021-07-24] MEDS ORDERED: BUPIVACAINE HCL 0.25% 10ML VIAL As Ordered ONE (05:30)
[2021-07-24] MEDS ORDERED: fentaNYL 100 MCG/2 ML INJECTION IV PRN (05:30)
[2021-07-24] MEDS ORDERED: MEASLES,MUMPS,RUBELLA VACCINE INJ (MMR-II) (90707) SC SCH (05:45)
[2021-07-24] MEDS ORDERED: RHOGAM 300 MCG (1500 IU) INJ (J2790) IM SCH (05:45)
[2021-07-24] MEDS: ACETAMINOPHEN 500 MG TAB PO SCH ×4 (05:45→23:46)
[2021-07-24] MEDS ORDERED: SIMETHICONE 80MG CHEW TAB PO PRN (05:45)
[2021-07-24] MEDS: MAG Sulf (OBGYN) 20GM/500ML 20,000 MG in IV 1 EA IV SCH ×2 (06:33→14:50)
[2021-07-24] MEDS ORDERED: BUPIVACAINE HCL 0.25% 10ML VIAL SC ONE (07:10)
[2021-07-24] MEDS ORDERED: OXYTOCIN 30 UNITS IN 0.9% NaCl 500ML IV BAG (J2590) As Ordered ONE (07:15)
[2021-07-24] MEDS ORDERED: OXYTOCIN DRIP 30 UNITS in IV 1 EA IV SCH (07:20)
[2021-07-24] MEDS: LR 1,000 ML IV SCH (08:25)
[2021-07-24] MEDS: PRENATAL VITAMINS CHEWABLE TABLET PO SCH (11:40)
[2021-07-24] MEDS: DOCUSATE SODIUM 100MG CAPSULE PO SCH ×2 (11:40→20:53)
[2021-07-24] MEDS: KETOROLAC 30 MG/ML 1ML VIAL IV SCH ×3 (11:41→23:46)
[2021-07-24 17:29] LABS: ALBUMIN 2.3 GM/DL (3.2-5.2); ALT/SGPT 18 U/L (12-78); BILIRUBIN,TOTAL 0.3 MG/DL (0.2-1.0); BLOOD UREA NITROGEN 10 MG/DL (7-18); CALCIUM LEVEL 7.1 MG/DL (8.5-10.1); CARBON DIOXIDE LEVEL 21 MEQ/L (21-32); CHLORIDE LEVEL 102 MEQ/L (98-107); CREATININE FOR GFR 0.79 MG/DL (0.55-1.30); GLOMERULAR FILTRATION RATE > 60.0 (>60); GLUCOSE, FASTING 135 MG/DL (70-100); POTASSIUM SERUM 4.3 MEQ/L (3.5-5.1); SODIUM LEVEL 135 MEQ/L (136-145); TOTAL PROTEIN 5.4 GM/DL (6.4-8.2)
[2021-07-24 17:38] LABS: HEMATOCRIT 27.9 % (36.0-47.0); MEAN CORPUSCULAR HEMOGLOBIN 28.6 pg (27.0-33.0); MEAN CORPUSCULAR HGB CONC 31.9 g/dl (32.0-36.5); MEAN CORPUSCULAR VOLUME 89.7 fl (80.0-96.0); PLATELET COUNT, AUTOMATED 205 10^3/uL (150-450); RED BLOOD COUNT 3.11 10^6/uL (4.00-5.40); WHITE BLOOD COUNT 17.9 10^3/uL (4.0-10.0)
[2021-07-24 17:53] LABS: HEMOGLOBIN 8.9 g/dl (12.0-15.5)
[2021-07-25] VITALS (11 sets, daily range): BP systolic 114–148; BP diastolic 63–73
[2021-07-25] MEDS: MAG Sulf (OBGYN) 20GM/500ML 20,000 MG in IV 1 EA IV SCH (00:56)
[2021-07-25] MEDS: ACETAMINOPHEN 500 MG TAB PO SCH ×4 (04:55→23:47)
[2021-07-25 07:48] LABS: HEMATOCRIT 26.5 % (36.0-47.0); HEMOGLOBIN 8.5 g/dl (12.0-15.5); MEAN CORPUSCULAR HEMOGLOBIN 28.9 pg (27.0-33.0); MEAN CORPUSCULAR HGB CONC 32.1 g/dl (32.0-36.5); MEAN CORPUSCULAR VOLUME 90.1 fl (80.0-96.0); PLATELET COUNT, AUTOMATED 177 10^3/uL (150-450); RED BLOOD COUNT 2.94 10^6/uL (4.00-5.40); WHITE BLOOD COUNT 13.2 10^3/uL (4.0-10.0)
[2021-07-25] MEDS: PRENATAL VITAMINS CHEWABLE TABLET PO SCH (08:28)
[2021-07-25] MEDS: IBUPROFEN 600MG TAB PO SCH ×3 (08:28→19:42)
[2021-07-25] MEDS: DOCUSATE SODIUM 100MG CAPSULE PO SCH ×2 (08:28→19:42)
[2021-07-26 02:02] VITALS: BP 116/55
[2021-07-26] MEDS: IBUPROFEN 600MG TAB PO SCH ×4 (02:04→19:42)
[2021-07-26] MEDS: ACETAMINOPHEN 500 MG TAB PO SCH ×3 (05:44→19:43)
[2021-07-26 06:06] VITALS: BP 110/60
[2021-07-26] MEDS: PRENATAL VITAMINS CHEWABLE TABLET PO SCH (08:11)
[2021-07-26] MEDS: DOCUSATE SODIUM 100MG CAPSULE PO SCH ×2 (08:12→19:42)
[2021-07-26 10:00] VITALS: BP 135/75
[2021-07-27] MEDS: IBUPROFEN 600MG TAB PO SCH ×3 (01:02→14:00)
[2021-07-27] MEDS: ACETAMINOPHEN 500 MG TAB PO SCH ×3 (01:03→12:34)
[2021-07-27 05:55] VITALS: BP 119/66
[2021-07-27] MEDS: DOCUSATE SODIUM 100MG CAPSULE PO SCH (07:50)
[2021-07-27] MEDS: PRENATAL VITAMINS CHEWABLE TABLET PO SCH (07:50)
[2021-07-27 10:59] VITALS: BP_SYST 158; BP_SYST 189; BP_DIAS 107; BP_DIAS 98
[2021-07-27 11:27] VITALS: BP 140/78
[2021-07-27 14:00] VITALS: BP 142/98
[2021-07-27] MEDS ORDERED: OXYC-517 PO (14:32)
[2021-07-27] MEDS ORDERED: IBUP-1022 PO (14:32)
== END 2021-07-27 17:07 | disposition home or self-care (01) | DRG 773 ==
LOC: M LDO 13:32 → M LDI 17:24 → M OBS 07-24 15:26
PROVIDERS: ADMIT Advanced Practice Midwife; ATTEND Obstetrics & Gynecology
PROC: 3E0P7GC Introduction of Other Therapeutic Substance into Female Reproductive, Via Natural or Artificial Opening (ICD-10-PCS; 2021-07-23)
PROC: 10D00Z1 Extraction of Products of Conception, Low, Open Approach (ICD-10-PCS; principal; 2021-07-24 04:24)
DX: O14.14 Severe pre-eclampsia complicating childbirth (principal); Z3A.35 35 weeks gestation of pregnancy; O24.420 Gestational diabetes mellitus in childbirth, diet controlled; O76 Abnormality in fetal heart rate and rhythm complicating labor and delivery; O69.81X0 Labor and delivery complicated by cord around neck, without compression, not applicable or unspecified; Z37.0 Single live birth

== ENCOUNTER → 2021-10-14 | Outpatient (CLI) | payer OTHER ==
[~2021-10-14] MED LIST changes: +FIOR1CAP PO; +IBUP-1022 PO; +OXYC-517 PO
== END ==
LOC: M SOG 14:09
PROVIDERS: ATTEND Orthopaedic Surgery Hand Surgery
DX: M25.572 Pain in left ankle and joints of left foot (principal)

== ENCOUNTER → 2022-02-18 | Outpatient (REF) | payer OTHER | LOC: M PLALAB 15:13 | PROVIDERS: ATTEND Obstetrics & Gynecology | DX: Z01.419 Encounter for gynecological examination (general) (routine) without abnormal findings (principal) | CPT/HCPCS: 87624; G0123 ==

== ENCOUNTER → 2022-04-10 | Outpatient (CLI) | payer OTHER ==
[2022-04-14 15:08] LABS: BABESIOSIS LEVEL IGG <1:10 (Neg:<1:10); BABESIOSIS LEVEL IGM <1:10 (Neg:<1:10); E CHAFFEENSIS IgG TITER Negative (Neg:<1:64); E CHAFFEENSIS IgM TITER Negative (Neg:<1:20); HUMAN GRANULCYTIC EHRLIC IgG Negative (Neg:<1:64); HUMAN GRANULCYTIC EHRLIC IgM Negative (Neg:<1:20); IgG P18 AB Absent (.); IgG P23 AB Absent (.); IgG P28 AB Absent (.); IgG P30 AB Absent (.); IgG P39 AB Absent (.); IgG P41 AB Present (.); IgG P45 AB Absent (.); IgG P66 AB Absent (.); IgG P93 AB Absent (.); IgM P23 AB Absent (.); IgM P39 AB Absent (.); IgM P41 AB Absent (.); LYME IgG WB INTERPRETATION Negative (.); LYME IgM WB INTERPRETATION Negative (.)
== END ==
LOC: M WUC 13:11
PROVIDERS: ATTEND Physician Assistant Medical
DX: M25.50 Pain in unspecified joint (principal)

== ENCOUNTER → 2023-04-20 | Outpatient (REF) | payer OTHER | LOC: M PLALAB 14:15 | PROVIDERS: ATTEND Obstetrics & Gynecology | DX: N92.6 Irregular menstruation, unspecified (principal) ==

== ENCOUNTER → 2024-04-05 | Outpatient (REF) | payer OTHER ==
[2024-04-05 19:14] LABS: BASO # 0.1 10^3/uL (0.0-0.2); BASO % 0.8 % (0.0-1.0); EOS # 0.3 10^3/uL (0.0-0.5); EOS % 3.1 % (0.0-3.0); HEMATOCRIT 42.3 % (36.0-47.0); HEMOGLOBIN 13.7 g/dl (12.0-15.5); LYMPH # 2.8 10^3/uL (1.5-5.0); MEAN CORPUSCULAR HEMOGLOBIN 28.6 pg (27.0-33.0); MEAN CORPUSCULAR HGB CONC 32.4 g/dl (32.0-36.5); MEAN CORPUSCULAR VOLUME 88.3 fl (80.0-96.0); MONO # 0.4 10^3/uL (0.0-0.8); MONO % 4.7 % (2.0-8.0); NEUTROPHILS # 4.5 10^3/uL (1.5-8.5); PLATELET COUNT, AUTOMATED 283 10^3/uL (150-450); RED BLOOD COUNT 4.79 10^6/uL (4.00-5.40)
[2024-04-05 19:17] LABS: ALBUMIN 4.3 G/DL (3.2-5.2); ALKALINE PHOSPHATASE 63 U/L (35-104); ALT/SGPT 39 U/L (7.0-40); AST/SGOT 21 U/L (<34); BILIRUBIN,TOTAL 0.8 MG/DL (0.3-1.2); BLOOD UREA NITROGEN 18 MG/DL (9-23); CALCIUM LEVEL 9.7 MG/DL (8.5-10.1); CARBON DIOXIDE LEVEL 26 MMOL/L (20-31); CHLORIDE LEVEL 104 MMOL/L (98-107); CREATININE FOR GFR 0.83 MG/DL (0.55-1.30); GLOMERULAR FILTRATION RATE > 60.0 (>58); GLUCOSE, FASTING 79 MG/DL (60-100); POTASSIUM SERUM 3.8 MMOL/L (3.5-5.1); SODIUM LEVEL 142 MMOL/L (136-145); TOTAL PROTEIN 7.8 G/DL (5.7-8.2)
[2024-04-05 19:18] LABS: THYROXINE (T4) 7.9 UG/DL (4.5-10.9)
[2024-04-05 19:19] LABS: THYROID STIMULATING HORMONE 1.873 uIU/ML (0.55-4.78)
[2024-04-05 20:22] LABS: ERYTHROCYTE SEDIMENTATION RATE 22 mm/hr (0-20)
[2024-04-06 17:52] LABS: RHEUMATOID FACTOR QUANT 6.9 IU/ML (<14)
[2024-04-06 17:57] LABS: THYROGLOBULIN ANTIBODY < 15.0 U/ML (<60.0); TOTAL T3 124.6 NG/DL (60.0-181.0)
[2024-04-06 17:58] LABS: THYROID PEROXIDASE ANTIBODY < 28.0 U/ML (<60.0)
== END ==
LOC: M LABDRAWC 16:39
PROVIDERS: ATTEND Allergy & Immunology Allergy
DX: L50.1 Idiopathic urticaria (principal)

== ENCOUNTER → 2024-04-17 | Outpatient (REF) | payer OTHER | LOC: M LABDRAWC 16:38 | PROVIDERS: ATTEND Allergy & Immunology Allergy | DX: L50.1 Idiopathic urticaria (principal) ==